=== PATIENT | male | born 1985 | race Caucasian/White ===

== ENCOUNTER 2017-05-09 08:52 | Outpatient (CLI) | payer OTHER ==
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
== END 2017-05-09 08:53 | disposition home or self-care (01) ==
LOC: DI 08:52
PROVIDERS: ATTEND General Practice
DX: M67.431 Ganglion, right wrist (principal); M67.833 Other specified disorders of tendon, right wrist